=== PATIENT | female | born 1935 | race Caucasian/White ===

== ENCOUNTER 2020-09-16 19:28 | Inpatient (IN) | payer MEDICARE, OTHER ==
[2020-09-16] MEDS ORDERED: CARDIZEM DRIP 100 MG/100 ML D5W 100 ML IV PRN (19:35)
[2020-09-16 20:08] LABS: Absolute Neutrophil Ct (ANC) 4.22 (1.4-6.9); BASOPHIL % 0.5 % (0.0-0.4); Basophil (Absolute #) 0.04 (0-0.4); Eosinophil % 10.5 % (0.00-5.0); Eosinophil (Absolute #) 0.84 (0-0.5); Hematocrit 39.8 % (35-47); Hemoglobin 12.5 gm/dl (12.0-16.0); Lymphocyte (Absolute #) 2.17 (1.0-4.6); Lymphocytes % 27.1 % (24.0-44.0); Mean Cell Volume 97.1 fl (78-100); Mean Corpuscular Hemoglobin 30.5 pg (26-32); Mean Corpuscular Hgb Concent. 31.4 g/dl (32-36); Monocyte (Absolute #) 0.73 (0.0-1.3); Monocytes % 9.1 % (0.0-12.0); Neutrophil % 52.8 % (36.0-66.0); Platelet Count 222 K/mm3 (150-450); Red Cell Distribution Width 14.9 % (11.5-14.0)
[2020-09-16] MEDS ORDERED: Toprol-Xl 25MG Tablets ONE (20:14)
[2020-09-16 20:15] LABS: INR 1.04 (0.8-3.0); PROTIME 11.8 SECONDS (9.95-12.35)
[2020-09-16] MEDS: Toprol Xl 50 MG PO SCH (20:15)
[2020-09-16] MEDS: ENOXAPARIN SODIUM SQ SCH (20:16)
[2020-09-16 20:20] LABS: Appearance SLIGHTLY CLOUDY (CLEAR); Bacteria FEW /HPF (NEGATIVE); Bilirubin NEGATIVE (NEGATIVE); Blood MODERATE Ery/ul (0-5); Epithelial Cells RARE /HPF (FEW); Glucose NEGATIVE (NEGATIVE); Ketones NEGATIVE (NEGATIVE); Leukocyte Esterase LARGE (NEGATIVE); Mucus SLIGHT /HPF (NEGATIVE); Nitrite POSITIVE (NEGATIVE); Protein,Urine Dip NEGATIVE (Negative); Specific Gravity 1.008 (1.005-1.025); Urobilinogen NEGATIVE mg/dL (0-1); WBC >100 /HPF (0-5)
[2020-09-16 20:27] LABS: ALBUMIN 4.2 g/dL (3.5-5.0); BILIRUBIN,TOTAL 0.5 mg/dL (0.2-1.3); Calcium 9.2 mg/dL (8.4-10.2); Creatinine 1 1.04 mg/dL (0.52-1.04); EST GLOMERULAR FILTRATION RATE 53.4 ML/MIN; Potassium 4.2 mmol/L (3.5-5.1); Total Protein 7.5 g/dL (6.3-8.2)
--- NOTE | 2020-09-16 22:04 | ERPHSYRPT ---
- History of Present Illness Time Seen by Provider: 09/16/20 20:05 Source: patient, EMS Exam Limitations: no limitations Patient Subjective Stated Complaint: dizziness Triage Nursing Assessment: Patient brought into ED via EMS and transferred to be d per 2. Patient A+O X3. Patient's skin pink, warm and dry. Patient reports being dizzy today and feeling weak. EMS reports police were called to patient's home for welfare check after [facility] attempted to call her regarding her 's condition who is currently hospitlized. Upon police arriving patient stated she had been dizzy and felt weak today. EMS states patient's heartrate was 160 Afib with RVR. EMS administered 15mg of Cardizem and 4mg of Zofran. Patient currently denies pain or discomfort. Physician History: Patient is an 85-year-old female who presents with a complaint of dizziness by EMS. EMS was dispatched to the home by [facility] when they could not reach her regarding her 's condition who is hospitalized at [facility]. Patient complained EMS of dizziness weakness and nausea. She says she has been out of her medicines for over a month. Her medicines consisted of warfarin metoprolol 200 mg twice daily and diltiazem CD 240 twice daily EMS found her to be in atrial fib with a rapid ventricular response 15 mg of Cardizem were administered IV and she for a brief time converted to normal sinus rhythm and then later converted back to atrial fib although at a much slower rate than her original 160/min. Timing/Duration: today Activities at Onset: none Quality: throbbing Location: substernal Severity of Pain-Max: mild Severity of Pain-Current: mild Modifying Factors: Improves With: nothing, palpation Nitro Today/Relief: no nitro taken today Aspirin Treatment Today: no aspirin today Associated Symptoms: nausea, chest pain, malaise, weakness Allergies/Adverse Reactions: No Known Drug Allergies Allergy (Verified 09/16/20 19:44) Home Medications: Diltiazem HCl 240 mg [Cardizem CD 240 MG] 240 mg PO DAILY 05/18/14 [History] Metoprolol Succinate 100 mg [Toprol Xl 100 MG] 100 mg PO BID 05/18/14 [History] Warfarin Sodium 5 mg [Coumadin 5 MG] 5 mg PO DAILY 05/18/14 [History] Hx Tetanus, Diphtheria Vaccination/Date Given: Yes Hx Influenza Vaccination/Date Given: No Hx Pneumococcal Vaccination/Date Given: No Immunizations Up to Date: Yes Travel Risk - International Travel Have you traveled outside of the country in past 3 weeks: No - Coronavirus Screening Are you exhibiting any of the following symptoms?: No Close contact with a COVID-19 positive Pt in past 14-21 Days: No - Vaccine Status Have you recieved a Covid-19 vaccination: No - Review of Systems Constitutional: No Fever, No Chills Eyes: No Symptoms Ears, Nose, & Throat: No Symptoms Respiratory: Dyspnea, No Cough Cardiac: Chest Pain, Palpitations, No Edema, No Syncope Abdominal/Gastrointestinal: Nausea, No Abdominal Pain, No Vomiting, No Diarrhea Genitourinary Symptoms: No Dysuria Musculoskeletal: No Back Pain, No Neck Pain Skin: No Rash Neurological: No Dizziness, No Focal Weakness, No Sensory Changes Psychological: No Symptoms Endocrine: No Symptoms All Other Systems: Reviewed and Negative - Past Medical History Pertinent Past Medical History: Yes Cardiac History: Arrhythmia, Coronary Artery Disease GI Medical History: Esophageal Disorder, GERD, Hernia History: No Pertinent History Psycho-Social History: No Pertinent History Female Reproductive Disorders: No Pertinent History - Past Surgical History Past Surgical History: Yes Gastrointestinal: Cholecystectomy Female Surgical History: Hysterectomy - Social History Smoking Status: Never smoker Exposure to second hand smoke: No Drug Use: none Patient Lives Alone: No - Nursing Vital Signs Nursing Vital Signs: Initial Vital Signs Temperature 98.1 F 09/16/20 19:46 Pulse Rate 98 H 09/16/20 19:46 Respiratory Rate 22 09/16/20 19:46 O2 Sat by Pulse Oximetry 97 09/16/20 19:46 Pain Scale Pain Intensity 0 - Physical Exam General Appearance: mild distress Eye Exam: PERRL/EOMI, eyes nml inspection Ears, Nose, Throat Exam: normal ENT inspection, moist mucous membranes Neck Exam: normal inspection, non-tender, supple Respiratory Exam: crackles/rales (Bilateral basilar rales) Cardiovascular Exam: irregular Gastrointestinal/Abdomen Exam: soft, normal bowel sounds Pelvic Exam: not done Rectal Exam: deferred Extremity Exam: normal inspection, normal range of motion Neurologic Exam: alert, oriented x 3, cooperative SpO2: 97 - Course Nursing assessment & vital signs reviewed: Yes EKG Interpreted by Me: RATE (107), A-fib, NORMAL AXIS, Non-specific ST Changes - Radiology Exams Chest X-ray Interpretation: Interpreted by me, Other (Massive hiatal hernia intrathoracic) - CT Exams Chest CT Interpretation: Negative (Negative for pulmonary emboli) Ordered Tests: Active Orders 24 hr Category Date Time Status Senior Fire Protection Engineer STAT Care 09/16/20 19:36 Active EKG-ER Only STAT Care 09/16/20 19:35 Active IV Insertion STAT Care 09/16/20 19:35 Active Oxygen-ED Only Nasal Cannula 2 lpm Care 09/16/20 19:35 Active CHEST 1 VIEW (PORTABLE) Stat Exams 09/16/20 19:36 Taken CHEST WITH CONTRAST [CT] Stat Exams 09/16/20 20:52 Ordered CBC W DIFF Stat Lab 09/16/20 20:05 Completed CMP Stat Lab 09/16/20 20:05 Completed CULTURE,URINE Stat Lab 09/16/20 20:03 Received D-DIMER QUANTITATIVE Stat Lab 09/16/20 20:05 Completed LIPASE Stat Lab 09/16/20 20:05 Completed Lactic Acid Stat Lab 09/16/20 20:00 Completed MAGNESIUM Stat Lab 09/16/20 20:05 Completed PROTIME WITH INR Stat Lab 09/16/20 20:05 Completed TROPONIN Q3H Lab 09/16/20 20:05 Completed TROPONIN Q3H Lab 09/16/20 22:45 Ordered TROPONIN Q3H Lab 09/17/20 01:45 Ordered TROPONIN Q3H Lab 09/17/20 04:45 Ordered TROPONIN Q3H Lab 09/17/20 07:45 Ordered UA W/RFX UR CULTURE Stat Lab 09/16/20 20:03 Completed Medication Summary Generic Name Dose Route Start Last Admin Trade Name Freq PRN Reason Stop Dose Admin Enoxaparin Sodium 70 mg 09/16/20 19:45 09/16/20 20:16 Enoxaparin Sodium SQ 10/16/20 19:44 70 mg Q12H MARTHA Administration Diltiazem HCl 100 mls @ 10 mls/hr 09/16/20 19:35 09/16/20 20:40 Cardizem Drip 100 Mg/100 Ml D5w IV 10/16/20 19:34 5 mg/hr .Q10H PRN 5 mls/hr HEART RATE/ A-FIB Administration Protocol 10 MG/HR Metoprolol Succinate 50 mg 09/16/20 22:00 09/16/20 20:15 Toprol Xl 50 Mg PO 10/16/20 21:59 50 mg BID MARTHA Administration Discontinued Medications Generic Name Dose Route Start Last Admin Trade Name Valerio PRN Reason Stop Dose Admin Metoprolol Succinate Confirm 09/16/20 20:14 Toprol-Xl 25mg Tablets Administered 09/16/20 20:15 Dose 50 mg .ROUTE .STK-MED ONE Lab/Rad Data: Laboratory Result Diagrams 09/16/20 20:05 09/16/20 20:05 Laboratory Results 09/16/20 09/16/20 09/16/20 Range/Units 20:05 20:05 20:05 WBC (4.0-10.5) K/mm3 RBC (4.1-5.4) M/mm3 Hgb (12.0-16.0) gm/dl Hct (35-47) % MCV (78-100) fl MCH (26-32) pg MCHC (32-36) g/dl RDW (11.5-14.0) % Plt Count (150-450) K/mm3 MPV (7.5-11.0) fl Gran % (36.0-66.0) % Eos # (Auto) (0-0.5) Absolute Lymphs (auto) (1.0-4.6) Absolute Monos (auto) (0.0-1.3) Lymphocytes % (24.0-44.0) % Monocytes % (0.0-12.0) % Eosinophils % (0.00-5.0) % Basophils % (0.0-0.4) % Absolute Granulocytes (1.4-6.9) Basophils # (0-0.4) PT 11.8 (9.95-12.35) SECONDS INR 1.04 (0.8-3.0) D-Dimer 1652 H* (215-500) ng/mL Sodium 135 L (137-145) mmol/L Potassium 4.2 (3.5-5.1) mmol/L Chloride 102 (98-107) mmol/L Carbon Dioxide 22 (22-30) mmol/L Anion Gap 14.0 (5-15) MEQ/L BUN 24 H (7-17) mg/dL Creatinine 1.04 (0.52-1.04) mg/dL Estimated GFR 53.4 ML/MIN Glucose 115 H (74-106) mg/dL Lactic Acid (0.4-2.0) Calcium 9.2 (8.4-10.2) mg/dL Magnesium 2.0 (1.6-2.3) mg/dL Total Bilirubin 0.50 (0.2-1.3) mg/dL AST 25 (14-36) U/L ALT 11 (0-35) U/L Alkaline Phosphatase 73 (38-126) U/L Troponin I < 0.012 (0.000-0.034) ng/mL Serum Total Protein 7.5 (6.3-8.2) g/dL Albumin 4.2 (3.5-5.0) g/dL Lipase 130 (23-300) U/L Urine Color (YELLOW) Urine Appearance (CLEAR) Urine pH (5-6) Ur Specific Hamilton (1.005-1.025) Urine Protein (Negative) Urine Ketones (NEGATIVE) Urine Blood (0-5) Lg/ul Urine Nitrite (NEGATIVE) Urine Bilirubin (NEGATIVE) Urine Urobilinogen (0-1) mg/dL Ur Leukocyte Esterase (NEGATIVE) Urine WBC (Auto) (0-5) /HPF Urine RBC (Auto) (0-2) /HPF U Epithel Cells (Auto) (FEW) /HPF Urine Bacteria (Auto) (NEGATIVE) /HPF Urine Mucus (Auto) (NEGATIVE) /HPF Urine Culture Reflexed (NO) Urine Glucose (NEGATIVE) mg/dL 09/16/20 09/16/20 09/16/20 Range/Units 20:05 20:03 20:00 WBC 8.0 (4.0-10.5) K/mm3 RBC 4.10 (4.1-5.4) M/mm3 Hgb 12.5 (12.0-16.0) gm/dl Hct 39.8 (35-47) % MCV 97.1 (78-100) fl MCH 30.5 (26-32) pg MCHC 31.4 L (32-36) g/dl RDW 14.9 H (11.5-14.0) % Plt Count 222 (150-450) K/mm3 MPV 10.0 (7.5-11.0) fl Gran % 52.8 (36.0-66.0) % Eos # (Auto) 0.84 H (0-0.5) Absolute Lymphs (auto) 2.17 (1.0-4.6) Absolute Monos (auto) 0.73 (0.0-1.3) Lymphocytes % 27.1 (24.0-44.0) % Monocytes % 9.1 (0.0-12.0) % Eosinophils % 10.5 H (0.00-5.0) % Basophils % 0.5 (0.0-0.4) % Absolute Granulocytes 4.22 (1.4-6.9) Basophils # 0.04 (0-0.4) PT (9.95-12.35) SECONDS INR (0.8-3.0) D-Dimer (215-500) ng/mL Sodium (137-145) mmol/L Potassium (3.5-5.1) mmol/L Chloride (98-107) mmol/L Carbon Dioxide (22-30) mmol/L Anion Gap (5-15) MEQ/L BUN (7-17) mg/dL Creatinine (0.52-1.04) mg/dL Estimated GFR ML/MIN Glucose (74-106) mg/dL Lactic Acid 2.2 H (0.4-2.0) Calcium (8.4-10.2) mg/dL Magnesium (1.6-2.3) mg/dL Total Bilirubin (0.2-1.3) mg/dL AST (14-36) U/L ALT (0-35) U/L Alkaline Phosphatase (38-126) U/L Troponin I (0.000-0.034) ng/mL Serum Total Protein (6.3-8.2) g/dL Albumin (3.5-5.0) g/dL Lipase (23-300) U/L Urine Color YELLOW (YELLOW) Urine Appearance SLIGHTLY CLOUDY (CLEAR) Urine pH 6.0 (5-6) Ur Specific Hamilton 1.008 (1.005-1.025) Urine Protein NEGATIVE (Negative) Urine Ketones NEGATIVE (NEGATIVE) Urine Blood MODERATE (0-5) Lg/ul Urine Nitrite POSITIVE (NEGATIVE) Urine Bilirubin NEGATIVE (NEGATIVE) Urine Urobilinogen NEGATIVE (0-1) mg/dL Ur Leukocyte Esterase LARGE (NEGATIVE) Urine WBC (Auto) >100 (0-5) /HPF Urine RBC (Auto) 3-5 (0-2) /HPF U Epithel Cells (Auto) RARE (FEW) /HPF Urine Bacteria (Auto) FEW (NEGATIVE) /HPF Urine Mucus (Auto) SLIGHT (NEGATIVE) /HPF Urine Culture Reflexed YES (NO) Urine Glucose NEGATIVE (NEGATIVE) mg/dL - Progress Progress: improved Air Movement: good Blood Culture(s) Obtained: No Antibiotics given: No Discussed with Dr.: Weeks - Departure Departure Disposition: In-patient Admission Clinical Impression: Atrial fibrillation with rapid ventricular response, UTI (lower urinary tract infection) Condition: Fair Critical Care Time: No
[2020-09-16 22:23] LABS: INFLUENZA A NEGATIVE (NEGATIVE); INFLUENZA B NEGATIVE (NEGATIVE); RESPIRATORY SYNCTIAL VIRUS NEGATIVE (Negative)
[2020-09-17] MEDS: Sodium Chloride 0.9% 1000 ML 1,000 ML IV SCH ×3 (00:40→21:15)
[2020-09-17 05:12] LABS: INR 1.16 (0.8-3.0); PROTIME 13.1 SECONDS (9.95-12.35)
[2020-09-17 05:18] LABS: ALBUMIN 3.4 g/dL (3.5-5.0); ANION GAP 10.2 MEQ/L (5-15); BILIRUBIN,TOTAL 0.5 mg/dL (0.2-1.3); Calcium 8.5 mg/dL (8.4-10.2); Creatinine 1 0.96 mg/dL (0.52-1.04); EST GLOMERULAR FILTRATION RATE 58.6 ML/MIN; Potassium 4.3 mmol/L (3.5-5.1); Total Protein 6.3 g/dL (6.3-8.2)
[2020-09-17 05:43] LABS: Absolute Neutrophil Ct (ANC) 3.37 (1.4-6.9); BASOPHIL % 0.7 % (0.0-0.4); Basophil (Absolute #) 0.04 (0-0.4); Eosinophil % 7.8 % (0.00-5.0); Eosinophil (Absolute #) 0.47 (0-0.5); Hematocrit 35.8 % (35-47); Hemoglobin 11.2 gm/dl (12.0-16.0); Lymphocyte (Absolute #) 1.58 (1.0-4.6); Lymphocytes % 26.1 % (24.0-44.0); Mean Cell Volume 96.2 fl (78-100); Mean Corpuscular Hemoglobin 30.1 pg (26-32); Mean Corpuscular Hgb Concent. 31.3 g/dl (32-36); Mean Platelet Volume 10.3 fl (7.5-11.0); Monocytes % 9.9 % (0.0-12.0); Neutrophil % 55.5 % (36.0-66.0); Platelet Count 204 K/mm3 (150-450); Red Blood Count 3.72 M/mm3 (4.1-5.4); Red Cell Distribution Width 14.8 % (11.5-14.0); White Blood Count 6.1 K/mm3 (4.0-10.5)
--- NOTE | 2020-09-17 07:16 | XRAY ---
Indication: Short of breath. Elevated d-dimer. Multiple contiguous axial images obtained through the chest using 80 cc of Isovue-370 contrast and PE protocol. Comparison: None There is good opacification of the pulmonary arteries to include the lobar and segmental branches. No pulmonary embolus. Heart is enlarged. Aorta is minimally arteriosclerotic without aneurysm/dissection. Small right hilar calcified nodes. Nonspecific 2.0 x 1.7 cm prominent left suprahilar lymph node. Very large hiatal hernia with intrathoracic stomach occupying the left lung base with subsequent mild compressive atelectasis. Remaining lungs demonstrates minimal medial right lower lobe fibrosis/scarring and a few tiny right lung calcified granulomas. No infiltrate or effusion. Bony thorax demonstrates osteopenia, mild/moderate multilevel degenerative spondylosis, and moderate double curvature scoliosis. Limited upper abdomen demonstrates a 5.6 cm right renal cyst, cholecystectomy clips, and splenic calcified granulomas. Impression: 1. Negative pulmonary embolus. 2. Nonspecific prominent left suprahilar lymph node. 3. Very large hiatal hernia with intrathoracic stomach. 4. Incidental cardiomegaly, right renal cyst, chronic bony findings, and old granulomatous disease.
--- NOTE | 2020-09-17 07:18 | XRAY ---
Indication: Short of breath. Comparison: May 25, 2014. Portable chest again demonstrates cardiomegaly with very large hiatal hernia and left lung base intrathoracic stomach. No focal infiltrates, consolidation, or large effusion. Bony thorax intact again with osteopenia, degenerative changes, and scoliosis. Impression: Nonacute chest with chronic features.
[2020-09-17] MEDS: ROCEPHIN 1 Gm-D5w 50 ml Bag** 1 G/50 ML IVPB IV SCH (08:08)
[2020-09-17] MEDS: TYLENOL 325 MG PO PRN (08:28)
[2020-09-17] MEDS: ENOXAPARIN SODIUM SQ SCH (08:50)
[2020-09-17] MEDS ORDERED: ENOXAPARIN SODIUM SQ SCH (09:00)
--- NOTE | 2020-09-17 09:17 | PCM.HP ---
History of Present Illness - Chief Complaint Chief Complaint: atrial fib with rapid ventricular response History of Present Illness: is a 85 year old female patient of Dr Sheth, she has a known history of atrial fibrillation but apparently has been out of meds for about a month, she was feeling very dizzy and weak yesterday. Her is currently hospitalized in [facility], she was unable to be contacted via hospital staff for an update so welfare check was performed and patient was in a fib with rvr, she also has dysuria and frequency. - Review of Systems Constitutional: Weakness, No Fever, No Chills Cardiac: Palpitations, No Chest Pain Genitourinary Symptoms: No Dysuria Skin: No Rash Neurological: Dizziness All Other Systems: Reviewed and Negative Medications & Allergies Home Medications: Home Medication List Diltiazem HCl 240 mg [Cardizem CD 240 MG] 240 mg PO DAILY 05/18/14 [History Confirmed 09/16/20] Metoprolol Succinate 100 mg [Toprol Xl 100 MG] 100 mg PO BID 05/18/14 [History Confirmed 09/16/20] Warfarin Sodium 5 mg [Coumadin 5 MG] 5 mg PO DAILY 05/18/14 [History Confirmed 09/16/20] Allergies/Adverse Reactions: Allergies Allergy/AdvReac Type Severity Reaction Status Date / Time No Known Drug Allergies Allergy Verified 09/16/20 19:44 - Past Medical History Past Medical History: Yes Neurological History: No Pertinent History ENT History: Cataracts Cardiac History: Hypertension Respiratory History: No Pertinent History Endocrine Medical History: No Pertinent History Musculoskelatal History: Osteoarthritis GI Medical History: No Pertinent History History: No Pertinent History Pyscho-Social History: No Pertinent History Reproductive Disorders: No Pertinent History - Female History Are you now?: No - Past Surgical History Past Surgical History: Yes Neuro Surgical History: No Pertinent History Cardiac History: No Pertinent History Respiratory Surgery: No Pertinent History GI Surgical History: No Pertinent History Genitourinary Surgical Hx: No Pertinent History Musculskeletal Surgical Hx: No Pertinent History Female Surgical History: Hysterectomy - Social History Smoking Status: Never smoker Exposure to second hand smoke: No Alcohol: None Drug Use: none - Physical Exam Vital Signs: Vital Signs - 24 hr Temp Pulse Resp BP BP Pulse Ox 09/17/20 08:00 89 09/17/20 06:17 103 H 17 95 09/17/20 05:00 99.2 F 79 16 109/72 93 L 09/17/20 04:32 94 H 16 109/72 94 L 09/17/20 04:00 99.2 F 88 17 96/50 94 L 09/17/20 02:08 77 17 96/50 94 L 09/17/20 01:30 77 17 98/57 95 09/17/20 01:08 99.2 F 81 17 101/60 95 09/17/20 00:30 81 15 100/57 09/16/20 22:28 102 H 113/62 96 09/16/20 22:23 97 09/16/20 20:44 115 H 127/95 97 09/16/20 19:46 98.1 F 98 H 22 97 General Appearance: no apparent distress, alert Neurologic Exam: alert, oriented x 3, cooperative Respiratory Exam: normal breath sounds, lungs clear, No respiratory distress Cardiovascular Exam: irregular Gastrointestinal/Abdomen Exam: soft, normal bowel sounds, No tenderness, No mass Extremity Exam: normal inspection, normal range of motion, pelvis stable Skin Exam: normal color, warm, dry, No rash Results - Labs Lab/Micro Results: Lab Results-Last 24 Hours 09/16/20 09/16/20 09/16/20 Range/Units 20:00 20:03 20:05 WBC 8.0 (4.0-10.5) K/mm3 RBC 4.10 (4.1-5.4) M/mm3 Hgb 12.5 (12.0-16.0) gm/dl Hct 39.8 (35-47) % MCV 97.1 (78-100) fl MCH 30.5 (26-32) pg MCHC 31.4 L (32-36) g/dl RDW 14.9 H (11.5-14.0) % Plt Count 222 (150-450) K/mm3 MPV 10.0 (7.5-11.0) fl Gran % 52.8 (36.0-66.0) % Eos # (Auto) 0.84 H (0-0.5) Absolute Lymphs (auto) 2.17 (1.0-4.6) Absolute Monos (auto) 0.73 (0.0-1.3) Lymphocytes % 27.1 (24.0-44.0) % Monocytes % 9.1 (0.0-12.0) % Eosinophils % 10.5 H (0.00-5.0) % Basophils % 0.5 (0.0-0.4) % Absolute Granulocytes 4.22 (1.4-6.9) Basophils # 0.04 (0-0.4) PT (9.95-12.35) SECONDS INR (0.8-3.0) D-Dimer (215-500) ng/mL Sodium (137-145) mmol/L Potassium (3.5-5.1) mmol/L Chloride (98-107) mmol/L Carbon Dioxide (22-30) mmol/L Anion Gap (5-15) MEQ/L BUN (7-17) mg/dL Creatinine (0.52-1.04) mg/dL Estimated GFR ML/MIN Glucose (74-106) mg/dL Lactic Acid 2.2 H (0.4-2.0) Calcium (8.4-10.2) mg/dL Magnesium (1.6-2.3) mg/dL Total Bilirubin (0.2-1.3) mg/dL AST (14-36) U/L ALT (0-35) U/L Alkaline Phosphatase (38-126) U/L Troponin I (0.000-0.034) ng/mL Serum Total Protein (6.3-8.2) g/dL Albumin (3.5-5.0) g/dL Lipase (23-300) U/L Urine Color YELLOW (YELLOW) Urine Appearance SLIGHTLY CLOUDY (CLEAR) Urine pH 6.0 (5-6) Ur Specific [place] 1.008 (1.005-1.025) Urine Protein NEGATIVE (Negative) Urine Ketones NEGATIVE (NEGATIVE) Urine Blood MODERATE (0-5) Lg/ul Urine Nitrite POSITIVE (NEGATIVE) Urine Bilirubin NEGATIVE (NEGATIVE) Urine Urobilinogen NEGATIVE (0-1) mg/dL Ur Leukocyte Esterase LARGE (NEGATIVE) Urine WBC (Auto) >100 (0-5) /HPF Urine RBC (Auto) 3-5 (0-2) /HPF U Epithel Cells (Auto) RARE (FEW) /HPF Urine Bacteria (Auto) FEW (NEGATIVE) /HPF Urine Mucus (Auto) SLIGHT (NEGATIVE) /HPF Urine Culture Reflexed YES (NO) Urine Glucose NEGATIVE (NEGATIVE) mg/dL Influenza Type A Ag (NEGATIVE) Influenza Type B Ag (NEGATIVE) RSV (PCR) (Negative) SARS-CoV-2 (PCR) (NEGATIVE) 09/16/20 09/16/20 09/16/20 Range/Units 20:05 20:05 20:05 WBC (4.0-10.5) K/mm3 RBC (4.1-5.4) M/mm3 Hgb (12.0-16.0) gm/dl Hct (35-47) % MCV (78-100) fl MCH (26-32) pg MCHC (32-36) g/dl RDW (11.5-14.0) % Plt Count (150-450) K/mm3 MPV (7.5-11.0) fl Gran % (36.0-66.0) % Eos # (Auto) (0-0.5) Absolute Lymphs (auto) (1.0-4.6) Absolute Monos (auto) (0.0-1.3) Lymphocytes % (24.0-44.0) % Monocytes % (0.0-12.0) % Eosinophils % (0.00-5.0) % Basophils % (0.0-0.4) % Absolute Granulocytes (1.4-6.9) Basophils # (0-0.4) PT 11.8 (9.95-12.35) SECONDS INR 1.04 (0.8-3.0) D-Dimer 1652 H* (215-500) ng/mL Sodium 135 L (137-145) mmol/L Potassium 4.2 (3.5-5.1) mmol/L Chloride 102 (98-107) mmol/L Carbon Dioxide 22 (22-30) mmol/L Anion Gap 14.0 (5-15) MEQ/L BUN 24 H (7-17) mg/dL Creatinine 1.04 (0.52-1.04) mg/dL Estimated GFR 53.4 ML/MIN Glucose 115 H (74-106) mg/dL Lactic Acid (0.4-2.0) Calcium 9.2 (8.4-10.2) mg/dL Magnesium 2.0 (1.6-2.3) mg/dL Total Bilirubin 0.50 (0.2-1.3) mg/dL AST 25 (14-36) U/L ALT 11 (0-35) U/L Alkaline Phosphatase 73 (38-126) U/L Troponin I < 0.012 (0.000-0.034) ng/mL Serum Total Protein 7.5 (6.3-8.2) g/dL Albumin 4.2 (3.5-5.0) g/dL Lipase 130 (23-300) U/L Urine Color (YELLOW) Urine Appearance (CLEAR) Urine pH (5-6) Ur Specific [place] (1.005-1.025) Urine Protein (Negative) Urine Ketones (NEGATIVE) Urine Blood (0-5) Lg/ul Urine Nitrite (NEGATIVE) Urine Bilirubin (NEGATIVE) Urine Urobilinogen (0-1) mg/dL Ur Leukocyte Esterase (NEGATIVE) Urine WBC (Auto) (0-5) /HPF Urine RBC (Auto) (0-2) /HPF U Epithel Cells (Auto) (FEW) /HPF Urine Bacteria (Auto) (NEGATIVE) /HPF Urine Mucus (Auto) (NEGATIVE) /HPF Urine Culture Reflexed (NO) Urine Glucose (NEGATIVE) mg/dL Influenza Type A Ag (NEGATIVE) Influenza Type B Ag (NEGATIVE) RSV (PCR) (Negative) SARS-CoV-2 (PCR) (NEGATIVE) 09/16/20 09/16/20 09/16/20 Range/Units 21:29 23:00 23:05 WBC (4.0-10.5) K/mm3 RBC (4.1-5.4) M/mm3 Hgb (12.0-16.0) gm/dl Hct (35-47) % MCV (78-100) fl MCH (26-32) pg MCHC (32-36) g/dl RDW (11.5-14.0) % Plt Count (150-450) K/mm3 MPV (7.5-11.0) fl Gran % (36.0-66.0) % Eos # (Auto) (0-0.5) Absolute Lymphs (auto) (1.0-4.6) Absolute Monos (auto) (0.0-1.3) Lymphocytes % (24.0-44.0) % Monocytes % (0.0-12.0) % Eosinophils % (0.00-5.0) % Basophils % (0.0-0.4) % Absolute Granulocytes (1.4-6.9) Basophils # (0-0.4) PT (9.95-12.35) SECONDS INR (0.8-3.0) D-Dimer (215-500) ng/mL Sodium (137-145) mmol/L Potassium (3.5-5.1) mmol/L Chloride (98-107) mmol/L Carbon Dioxide (22-30) mmol/L Anion Gap (5-15) MEQ/L BUN (7-17) mg/dL Creatinine (0.52-1.04) mg/dL Estimated GFR ML/MIN Glucose (74-106) mg/dL Lactic Acid 1.4 (0.4-2.0) Calcium (8.4-10.2) mg/dL Magnesium (1.6-2.3) mg/dL Total Bilirubin (0.2-1.3) mg/dL AST (14-36) U/L ALT (0-35) U/L Alkaline Phosphatase (38-126) U/L Troponin I 0.025 (0.000-0.034) ng/mL Serum Total Protein (6.3-8.2) g/dL Albumin (3.5-5.0) g/dL Lipase (23-300) U/L Urine Color (YELLOW) Urine Appearance (CLEAR) Urine pH (5-6) Ur Specific [place] (1.005-1.025) Urine Protein (Negative) Urine Ketones (NEGATIVE) Urine Blood (0-5) Lg/ul Urine Nitrite (NEGATIVE) Urine Bilirubin (NEGATIVE) Urine Urobilinogen (0-1) mg/dL Ur Leukocyte Esterase (NEGATIVE) Urine WBC (Auto) (0-5) /HPF Urine RBC (Auto) (0-2) /HPF U Epithel Cells (Auto) (FEW) /HPF Urine Bacteria (Auto) (NEGATIVE) /HPF Urine Mucus (Auto) (NEGATIVE) /HPF Urine Culture Reflexed (NO) Urine Glucose (NEGATIVE) mg/dL Influenza Type A Ag NEGATIVE (NEGATIVE) Influenza Type B Ag NEGATIVE (NEGATIVE) RSV (PCR) NEGATIVE (Negative) SARS-CoV-2 (PCR) NEGATIVE (NEGATIVE) 05/15/21 05/15/21 05/15/21 Range/Units 01:59 04:50 04:59 WBC (4.0-10.5) K/mm3 RBC (4.1-5.4) M/mm3 Hgb (12.0-16.0) gm/dl Hct (35-47) % MCV (78-100) fl MCH (26-32) pg MCHC (32-36) g/dl RDW (11.5-14.0) % Plt Count (150-450) K/mm3 MPV (7.5-11.0) fl Gran % (36.0-66.0) % Eos # (Auto) (0-0.5) Absolute Lymphs (auto) (1.0-4.6) Absolute Monos (auto) (0.0-1.3) Lymphocytes % (24.0-44.0) % Monocytes % (0.0-12.0) % Eosinophils % (0.00-5.0) % Basophils % (0.0-0.4) % Absolute Granulocytes (1.4-6.9) Basophils # (0-0.4) PT (9.95-12.35) SECONDS INR (0.8-3.0) D-Dimer (215-500) ng/mL Sodium (137-145) mmol/L Potassium (3.5-5.1) mmol/L Chloride (98-107) mmol/L Carbon Dioxide (22-30) mmol/L Anion Gap (5-15) MEQ/L BUN (7-17) mg/dL Creatinine (0.52-1.04) mg/dL Estimated GFR ML/MIN Glucose (74-106) mg/dL Lactic Acid 0.9 (0.4-2.0) Calcium (8.4-10.2) mg/dL Magnesium (1.6-2.3) mg/dL Total Bilirubin (0.2-1.3) mg/dL AST (14-36) U/L ALT (0-35) U/L Alkaline Phosphatase (38-126) U/L Troponin I 0.030 0.027 (0.000-0.034) ng/mL Serum Total Protein (6.3-8.2) g/dL Albumin (3.5-5.0) g/dL Lipase (23-300) U/L Urine Color (YELLOW) Urine Appearance (CLEAR) Urine pH (5-6) Ur Specific [place] (1.005-1.025) Urine Protein (Negative) Urine Ketones (NEGATIVE) Urine Blood (0-5) Lg/ul Urine Nitrite (NEGATIVE) Urine Bilirubin (NEGATIVE) Urine Urobilinogen (0-1) mg/dL Ur Leukocyte Esterase (NEGATIVE) Urine WBC (Auto) (0-5) /HPF Urine RBC (Auto) (0-2) /HPF U Epithel Cells (Auto) (FEW) /HPF Urine Bacteria (Auto) (NEGATIVE) /HPF Urine Mucus (Auto) (NEGATIVE) /HPF Urine Culture Reflexed (NO) Urine Glucose (NEGATIVE) mg/dL Influenza Type A Ag (NEGATIVE) Influenza Type B Ag (NEGATIVE) RSV (PCR) (Negative) SARS-CoV-2 (PCR) (NEGATIVE) 09/17/20 09/17/20 09/17/20 Range/Units 04:59 04:59 04:59 WBC 6.1 (4.0-10.5) K/mm3 RBC 3.72 L (4.1-5.4) M/mm3 Hgb 11.2 L (12.0-16.0) gm/dl Hct 35.8 (35-47) % MCV 96.2 (78-100) fl MCH 30.1 (26-32) pg MCHC 31.3 L (32-36) g/dl RDW 14.8 H (11.5-14.0) % Plt Count 204 (150-450) K/mm3 MPV 10.3 (7.5-11.0) fl Gran % 55.5 (36.0-66.0) % Eos # (Auto) 0.47 (0-0.5) Absolute Lymphs (auto) 1.58 (1.0-4.6) Absolute Monos (auto) 0.60 (0.0-1.3) Lymphocytes % 26.1 (24.0-44.0) % Monocytes % 9.9 (0.0-12.0) % Eosinophils % 7.8 H (0.00-5.0) % Basophils % 0.7 (0.0-0.4) % Absolute Granulocytes 3.37 (1.4-6.9) Basophils # 0.04 (0-0.4) PT 13.1 H (9.95-12.35) SECONDS INR 1.16 (0.8-3.0) D-Dimer (215-500) ng/mL Sodium 135 L (137-145) mmol/L Potassium 4.3 (3.5-5.1) mmol/L Chloride 107 (98-107) mmol/L Carbon Dioxide 22 (22-30) mmol/L Anion Gap 10.2 (5-15) MEQ/L BUN 18 H (7-17) mg/dL Creatinine 0.96 (0.52-1.04) mg/dL Estimated GFR 58.6 ML/MIN Glucose 85 (74-106) mg/dL Lactic Acid (0.4-2.0) Calcium 8.5 (8.4-10.2) mg/dL Magnesium (1.6-2.3) mg/dL Total Bilirubin 0.50 (0.2-1.3) mg/dL AST 23 (14-36) U/L ALT 10 (0-35) U/L Alkaline Phosphatase 60 (38-126) U/L Troponin I (0.000-0.034) ng/mL Serum Total Protein 6.3 (6.3-8.2) g/dL Albumin 3.4 L (3.5-5.0) g/dL Lipase (23-300) U/L Urine Color (YELLOW) Urine Appearance (CLEAR) Urine pH (5-6) Ur Specific [place] (1.005-1.025) Urine Protein (Negative) Urine Ketones (NEGATIVE) Urine Blood (0-5) Lg/ul Urine Nitrite (NEGATIVE) Urine Bilirubin (NEGATIVE) Urine Urobilinogen (0-1) mg/dL Ur Leukocyte Esterase (NEGATIVE) Urine WBC (Auto) (0-5) /HPF Urine RBC (Auto) (0-2) /HPF U Epithel Cells (Auto) (FEW) /HPF Urine Bacteria (Auto) (NEGATIVE) /HPF Urine Mucus (Auto) (NEGATIVE) /HPF Urine Culture Reflexed (NO) Urine Glucose (NEGATIVE) mg/dL Influenza Type A Ag (NEGATIVE) Influenza Type B Ag (NEGATIVE) RSV (PCR) (Negative) SARS-CoV-2 (PCR) (NEGATIVE) 09/17/20 Range/Units 07:50 WBC (4.0-10.5) K/mm3 RBC (4.1-5.4) M/mm3 Hgb (12.0-16.0) gm/dl Hct (35-47) % MCV (78-100) fl MCH (26-32) pg MCHC (32-36) g/dl RDW (11.5-14.0) % Plt Count (150-450) K/mm3 MPV (7.5-11.0) fl Gran % (36.0-66.0) % Eos # (Auto) (0-0.5) Absolute Lymphs (auto) (1.0-4.6) Absolute Monos (auto) (0.0-1.3) Lymphocytes % (24.0-44.0) % Monocytes % (0.0-12.0) % Eosinophils % (0.00-5.0) % Basophils % (0.0-0.4) % Absolute Granulocytes (1.4-6.9) Basophils # (0-0.4) PT (9.95-12.35) SECONDS INR (0.8-3.0) D-Dimer (215-500) ng/mL Sodium (137-145) mmol/L Potassium (3.5-5.1) mmol/L Chloride (98-107) mmol/L Carbon Dioxide (22-30) mmol/L Anion Gap (5-15) MEQ/L BUN (7-17) mg/dL Creatinine (0.52-1.04) mg/dL Estimated GFR ML/MIN Glucose (74-106) mg/dL Lactic Acid (0.4-2.0) Calcium (8.4-10.2) mg/dL Magnesium (1.6-2.3) mg/dL Total Bilirubin (0.2-1.3) mg/dL AST (14-36) U/L ALT (0-35) U/L Alkaline Phosphatase (38-126) U/L Troponin I 0.021 (0.000-0.034) ng/mL Serum Total Protein (6.3-8.2) g/dL Albumin (3.5-5.0) g/dL Lipase (23-300) U/L Urine Color (YELLOW) Urine Appearance (CLEAR) Urine pH (5-6) Ur Specific [place] (1.005-1.025) Urine Protein (Negative) Urine Ketones (NEGATIVE) Urine Blood (0-5) Lg/ul Urine Nitrite (NEGATIVE) Urine Bilirubin (NEGATIVE) Urine Urobilinogen (0-1) mg/dL Ur Leukocyte Esterase (NEGATIVE) Urine WBC (Auto) (0-5) /HPF Urine RBC (Auto) (0-2) /HPF U Epithel Cells (Auto) (FEW) /HPF Urine Bacteria (Auto) (NEGATIVE) /HPF Urine Mucus (Auto) (NEGATIVE) /HPF Urine Culture Reflexed (NO) Urine Glucose (NEGATIVE) mg/dL Influenza Type A Ag (NEGATIVE) Influenza Type B Ag (NEGATIVE) RSV (PCR) (Negative) SARS-CoV-2 (PCR) (NEGATIVE) - Radiology Impressions Radiology Exams & Impressions: Radiology Procedures Category Date Time Status CHEST 1 VIEW (PORTABLE) Stat Exams 09/16/20 19:36 Completed CHEST WITH CONTRAST [CT] Stat Exams 09/16/20 20:52 Completed Assessment/Plan (1) Atrial fibrillation with rapid ventricular response Current Visit: Yes Status: Acute Assessment & Plan: plan to start on eliquis due to compliance issues warfarin might not be a good choice. will resume po metoprolol alone at this time at 50mg bid currently off drip and rate is controlled, start on lower dose and titrate up as needed Code(s): I48.91 - UNSPECIFIED ATRIAL FIBRILLATION (2) UTI (lower urinary tract infection) Current Visit: Yes Status: Acute Assessment & Plan: on rocephin, culture pending. Code(s): N39.0 - URINARY TRACT INFECTION, SITE NOT SPECIFIED
[2020-09-17] MEDS: ELIQUIS 2.5 MG TABLET PO SCH ×2 (11:00→21:16)
[2020-09-17] MEDS: Toprol Xl 50 MG PO SCH ×2 (11:00→21:16)
[2020-09-17] MEDS ORDERED: Mucinex 600MG ER Tabs PO PRN (19:56)
[2020-09-18 06:04] LABS: Absolute Neutrophil Ct (ANC) 3.25 (1.4-6.9); BASOPHIL % 1.3 % (0.0-0.4); Basophil (Absolute #) 0.08 (0-0.4); Eosinophil % 12.5 % (0.00-5.0); Eosinophil (Absolute #) 0.76 (0-0.5); Hematocrit 34.7 % (35-47); Hemoglobin 10.8 gm/dl (12.0-16.0); Lymphocyte (Absolute #) 1.39 (1.0-4.6); Lymphocytes % 22.9 % (24.0-44.0); Mean Cell Volume 97.2 fl (78-100); Mean Corpuscular Hemoglobin 30.3 pg (26-32); Mean Corpuscular Hgb Concent. 31.1 g/dl (32-36); Mean Platelet Volume 10.2 fl (7.5-11.0); Monocytes % 9.9 % (0.0-12.0); Neutrophil % 53.4 % (36.0-66.0); Platelet Count 179 K/mm3 (150-450); Red Blood Count 3.57 M/mm3 (4.1-5.4); White Blood Count 6.1 K/mm3 (4.0-10.5)
[2020-09-18 06:24] LABS: ANION GAP 7.7 MEQ/L (5-15); BILIRUBIN,TOTAL 0.5 mg/dL (0.2-1.3); Calcium 8.2 mg/dL (8.4-10.2); Creatinine 1 0.96 mg/dL (0.52-1.04); EST GLOMERULAR FILTRATION RATE 58.6 ML/MIN; Potassium 3.9 mmol/L (3.5-5.1); Total Protein 5.8 g/dL (6.3-8.2)
[2020-09-18] MEDS: TYLENOL 325 MG PO PRN (06:25)
--- NOTE | 2020-09-18 07:42 | PCM.NOTE ---
Date and Time: 09/18/20 0740 Subjective Assessment: patient reports her dizziness is some better, no chest pain, no shortness of breath. she is tolerating po intake Objective Exam General Appearance: no apparent distress, alert Respiratory Exam: normal breath sounds, lungs clear, No respiratory distress Cardiovascular Exam: irregular Gastrointestinal/Abdomen Exam: soft, No tenderness, No mass Extremity Exam: normal inspection, normal range of motion OBJECTIVE DATA Vital Signs: Vital Signs - 24 hr Temp Pulse Resp BP Pulse Ox 09/18/20 06:47 97.9 F 101 H 16 105/59 94 L 09/18/20 04:00 97.5 F 95 H 18 100/56 93 L 09/17/20 23:54 97.6 F 99 H 20 102/53 93 L 09/17/20 19:40 97.8 F 101 H 16 104/50 94 L 09/17/20 19:22 94 L 09/17/20 16:00 97.7 F 86 18 98/54 96 09/17/20 12:00 98.2 F 92 H 20 100/55 95 09/17/20 10:44 92 L 09/17/20 08:00 89 Pain Assessment - Last Documented Pain Intensity 5 Pain Scale Used 0-10 Pain Scale Intake and Output: Intake & Output 09/15/20 09/16/20 09/17/20 09/18/20 11:59 11:59 11:59 11:59 Intake Total 505 2591 Output Total 1450 1400 Balance -945 1191 Weight 59.7 kg Lab Results: Lab Results-Last 24 Hours 09/17/20 09/17/20 09/17/20 Range/Units 07:50 09:18 10:45 WBC (4.0-10.5) K/mm3 RBC (4.1-5.4) M/mm3 Hgb (12.0-16.0) gm/dl Hct (35-47) % MCV (78-100) fl MCH (26-32) pg MCHC (32-36) g/dl RDW (11.5-14.0) % Plt Count (150-450) K/mm3 MPV (7.5-11.0) fl Gran % (36.0-66.0) % Eos # (Auto) (0-0.5) Absolute Lymphs (auto) (1.0-4.6) Absolute Monos (auto) (0.0-1.3) Lymphocytes % (24.0-44.0) % Monocytes % (0.0-12.0) % Eosinophils % (0.00-5.0) % Basophils % (0.0-0.4) % Absolute Granulocytes (1.4-6.9) Basophils # (0-0.4) Sodium (137-145) mmol/L Potassium (3.5-5.1) mmol/L Chloride (98-107) mmol/L Carbon Dioxide (22-30) mmol/L Anion Gap (5-15) MEQ/L BUN (7-17) mg/dL Creatinine (0.52-1.04) mg/dL Estimated GFR ML/MIN Glucose (74-106) mg/dL Hemoglobin A1c 5.30 (4.5-6.0) % Calcium (8.4-10.2) mg/dL Magnesium (1.6-2.3) mg/dL Total Bilirubin (0.2-1.3) mg/dL AST (14-36) U/L ALT (0-35) U/L Alkaline Phosphatase (38-126) U/L Troponin I 0.021 (0.000-0.034) ng/mL Serum Total Protein (6.3-8.2) g/dL Albumin (3.5-5.0) g/dL TSH 3rd Generation 2.390 (0.47-4.68) mIU/L 09/18/20 09/18/20 Range/Units 05:30 05:35 WBC 6.1 (4.0-10.5) K/mm3 RBC 3.57 L (4.1-5.4) M/mm3 Hgb 10.8 L (12.0-16.0) gm/dl Hct 34.7 L (35-47) % MCV 97.2 (78-100) fl MCH 30.3 (26-32) pg MCHC 31.1 L (32-36) g/dl RDW 15.0 H (11.5-14.0) % Plt Count 179 (150-450) K/mm3 MPV 10.2 (7.5-11.0) fl Gran % 53.4 (36.0-66.0) % Eos # (Auto) 0.76 H (0-0.5) Absolute Lymphs (auto) 1.39 (1.0-4.6) Absolute Monos (auto) 0.60 (0.0-1.3) Lymphocytes % 22.9 L (24.0-44.0) % Monocytes % 9.9 (0.0-12.0) % Eosinophils % 12.5 H (0.00-5.0) % Basophils % 1.3 (0.0-0.4) % Absolute Granulocytes 3.25 (1.4-6.9) Basophils # 0.08 (0-0.4) Sodium 137 (137-145) mmol/L Potassium 3.9 (3.5-5.1) mmol/L Chloride 109 H (98-107) mmol/L Carbon Dioxide 24 (22-30) mmol/L Anion Gap 7.7 (5-15) MEQ/L BUN 17 (7-17) mg/dL Creatinine 0.96 (0.52-1.04) mg/dL Estimated GFR 58.6 ML/MIN Glucose 77 (74-106) mg/dL Hemoglobin A1c (4.5-6.0) % Calcium 8.2 L (8.4-10.2) mg/dL Magnesium 2.0 (1.6-2.3) mg/dL Total Bilirubin 0.50 (0.2-1.3) mg/dL AST 24 (14-36) U/L ALT 10 (0-35) U/L Alkaline Phosphatase 51 (38-126) U/L Troponin I (0.000-0.034) ng/mL Serum Total Protein 5.8 L (6.3-8.2) g/dL Albumin 3.0 L (3.5-5.0) g/dL TSH 3rd Generation (0.47-4.68) mIU/L Radiology Exams: Radiology Procedures Category Date Time Status CHEST 1 VIEW (PORTABLE) Stat Exams 09/16/20 19:36 Completed CHEST WITH CONTRAST [CT] Stat Exams 09/16/20 20:52 Completed Assessment/Plan (1) Atrial fibrillation with rapid ventricular response Current Visit: Yes Status: Acute Assessment & Plan: rate controlled with po metoprolol, started on eliquis as well. Code(s): I48.91 - UNSPECIFIED ATRIAL FIBRILLATION (2) UTI (lower urinary tract infection) Current Visit: Yes Status: Acute Assessment & Plan: klebsiella in urine, sens to rocephin Code(s): N39.0 - URINARY TRACT INFECTION, SITE NOT SPECIFIED (3) Weakness Current Visit: Yes Status: Acute Assessment & Plan: consult PT Code(s): R53.1 - WEAKNESS
[2020-09-18] MEDS: ELIQUIS 2.5 MG TABLET PO SCH ×2 (09:13→21:19)
[2020-09-18] MEDS: ROCEPHIN 1 Gm-D5w 50 ml Bag** 1 G/50 ML IVPB IV SCH (09:13)
[2020-09-18] MEDS: Toprol Xl 50 MG PO SCH ×2 (09:14→20:07)
[2020-09-18] MEDS ORDERED: Mucinex 600MG ER Tabs PO PRN (09:15)
[2020-09-18] MEDS: Sodium Chloride 0.9% 1000 ML 1,000 ML IV SCH ×2 (15:44→22:15)
[2020-09-19 06:04] LABS: Absolute Neutrophil Ct (ANC) 4.13 (1.4-6.9); BASOPHIL % 0.9 % (0.0-0.4); Basophil (Absolute #) 0.06 (0-0.4); Eosinophil % 11.7 % (0.00-5.0); Eosinophil (Absolute #) 0.79 (0-0.5); Hematocrit 34.3 % (35-47); Hemoglobin 10.6 gm/dl (12.0-16.0); Lymphocyte (Absolute #) 1.19 (1.0-4.6); Lymphocytes % 17.6 % (24.0-44.0); Mean Cell Volume 97.7 fl (78-100); Mean Corpuscular Hemoglobin 30.2 pg (26-32); Mean Corpuscular Hgb Concent. 30.9 g/dl (32-36); Mean Platelet Volume 10.1 fl (7.5-11.0); Monocyte (Absolute #) 0.61 (0.0-1.3); Neutrophil % 60.8 % (36.0-66.0); Platelet Count 175 K/mm3 (150-450); Red Blood Count 3.51 M/mm3 (4.1-5.4); Red Cell Distribution Width 14.9 % (11.5-14.0); White Blood Count 6.8 K/mm3 (4.0-10.5)
[2020-09-19 06:54] LABS: ANION GAP 9.1 MEQ/L (5-15); Creatinine 1 0.97 mg/dL (0.52-1.04); EST GLOMERULAR FILTRATION RATE 57.9 ML/MIN; MAGNESIUM 1.9 mg/dL (1.6-2.3)
[2020-09-19] MEDS ORDERED: Cardizem CD 120 MG PO SCH (10:00)
[2020-09-19] MEDS ORDERED: BACTRIM DS TABLET PO SCH (10:00)
[2020-09-19] MEDS: ELIQUIS 2.5 MG TABLET PO SCH (10:08)
[2020-09-19] MEDS: Toprol Xl 50 MG PO SCH (10:09)
[2020-09-19 12:44] VITALS: BP 125/79; PULSE 119; O2SAT 96
[2020-09-19] MEDS: TYLENOL 325 MG PO PRN (13:59)
== END 2020-09-19 16:28 | DRG 309 ==
LOC: ED 19:28 → ICU 23:15 → MED SURG 09-17 09:19
PROVIDERS: ADMIT Family Medicine; ATTEND Family Medicine
DX: I48.91 Unspecified atrial fibrillation (principal); N39.0 Urinary tract infection, site not specified; R53.1 Weakness; R42 Dizziness and giddiness; Z79.899 Other long term (current) drug therapy; Z79.01 Long term (current) use of anticoagulants; Z20.828 Contact with and (suspected) exposure to other viral communicable diseases; R79.1 Abnormal coagulation profile
CPT/HCPCS: 0241U; 36415; 71045; 71260; 80048; 80053; 81001; 83036; 83605; 83690; 83735; 84443; 84484; 85025; 85379; 85610; 87077; 87086; 87186; 93005; 93041; 96365; 96366; 96372; 97161; 99285; J0696; J1650; A9270-GY